=== PATIENT | female | born 1985 | race Caucasian/White ===

== ENCOUNTER → 2019-05-05 | Outpatient (CLI) | payer OTHER ==
--- NOTE | 2019-05-05 15:08 | REP ---
CHEST, TWO VIEWS: There is no evidence of acute infiltrate. No pleural effusion is seen. The heart is normal in size. The mediastinal silhouette is unremarkable. The visualized osseous structures are intact. IMPRESSION: No acute pulmonary disease. Electronically Signed by Brad Simon MD 05/05/2019 03:41 P
[2019-05-05 17:07] LABS: BASO # 0.1 10^3/uL (0.0-0.2); BASO % 0.5 % (0.0-1.0); EOS # 0.2 10^3/uL (0.0-0.5); EOS % 1.8 % (0.0-3.0); HEMATOCRIT 37.4 % (36.0-47.0); HEMOGLOBIN 12.1 g/dl (12.0-15.5); LYMPH # 3.1 10^3/uL (1.5-5.0); LYMPH % 30.8 % (24.0-44.0); MEAN CORPUSCULAR HEMOGLOBIN 31.4 pg (27.0-33.0); MEAN CORPUSCULAR HGB CONC 32.4 g/dl (32.0-36.5); MEAN CORPUSCULAR VOLUME 97.1 fl (80.0-96.0); MONO # 0.9 10^3/uL (0.0-0.8); MONO % 8.5 % (0.0-5.0); NEUTROPHILS # 5.8 10^3/uL (1.5-8.5); NEUTROPHILS % 57.9 % (36.0-66.0); PLATELET COUNT, AUTOMATED 268 10^3/uL (150-450); RED BLOOD COUNT 3.85 10^6/uL (4.00-5.40)
[2019-05-05 17:15] LABS: ALBUMIN 3.9 GM/DL (3.2-5.2); ALT/SGPT 30 U/L (12-78); BILIRUBIN,TOTAL 0.2 MG/DL (0.2-1.0); BLOOD UREA NITROGEN 10 MG/DL (7-18); CALCIUM LEVEL 8.5 MG/DL (8.5-10.1); CARBON DIOXIDE LEVEL 24 MEQ/L (21-32); CHLORIDE LEVEL 109 MEQ/L (98-107); CREATININE FOR GFR 0.71 MG/DL (0.55-1.30); FREE T4 0.96 NG/DL (0.76-1.46); GLOMERULAR FILTRATION RATE > 60.0 (>60); GLUCOSE, FASTING 96 MG/DL (70-100); POTASSIUM SERUM 3.9 MEQ/L (3.5-5.1); SODIUM LEVEL 140 MEQ/L (136-145); TOTAL PROTEIN 6.7 GM/DL (6.4-8.2)
== END ==
LOC: M WUC 13:33
PROVIDERS: ATTEND Physician Assistant
DX: R60.9 Edema, unspecified (principal)

== ENCOUNTER → 2020-01-05 | Outpatient (CLI) | payer OTHER ==
--- NOTE | 2020-01-13 13:30 | REP ---
OB ULTRASOUND HISTORY: Evaluate anatomy. TECHNIQUE: Real-time sonographic evaluation of the gravid uterus is performed. FINDINGS: There is a single living intrauterine gestation. The estimated gestational age is reportedly 3 weeks 5 days, estimated date of confinement (EDC) 03/10/2020. Todays measurements indicate appropriate growth. BIOMETRY CHART: BPD 78 mm 31 weeks 3 days 60th percentile HC 294 mm 32 weeks 3 days 75th percentile AC 267 mm 30 weeks 5 days 51st percentile Femur length 63 mm 32 weeks 3 days 75th percentile AC/HC ratio 1.10 Normal 0.97 to 1.16 Estimated weight 1775 g 65th percentile position is cephalic. Placenta is anterior and grade 2 with no previa or abruption. heart rate 134 beats per minute. Amniotic fluid appears within normal limits. Amniotic fluid index (ZAK) 12.8, normal range 8.9 to 23.7. Visualized anatomy today includes cerebellum, cisterna magna, facial structures, four chamber heart, ventricular outflow tracts, stomach, cord insertion, three-vessel cord kidneys and bladder which were all grossly unremarkable; although, there is an echogenic focus in the left ventricle of the heart likely related to chordae tendineae. The lateral ventricles and the cranium, choroid plexus, and spine are note well visualized. Cervix is closed and measures 3.1 cm in length. MTDD
== END ==
LOC: M WHC 15:15
PROVIDERS: ATTEND Advanced Practice Midwife
DX: O09.513 Supervision of elderly primigravida, third trimester (principal)

== ENCOUNTER → 2020-01-11 | Outpatient (CLI) | payer OTHER ==
[2020-01-11 17:47] LABS: BASO # 0.2 10^3/uL (0.0-0.2); BASO % 0.7 % (0.0-1.0); EOS # 0.2 10^3/uL (0.0-0.5); EOS % 1.1 % (0.0-3.0); HEMATOCRIT 36.3 % (36.0-47.0); HEMOGLOBIN 12.1 g/dl (12.0-15.5); LYMPH # 2.9 10^3/uL (1.5-5.0); MEAN CORPUSCULAR HEMOGLOBIN 31.6 pg (27.0-33.0); MEAN CORPUSCULAR HGB CONC 33.3 g/dl (32.0-36.5); MEAN CORPUSCULAR VOLUME 94.8 fl (80.0-96.0); MONO # 1.6 10^3/uL (0.0-0.8); MONO % 7.5 % (0.0-5.0); NEUTROPHILS # 15.1 10^3/uL (1.5-8.5); NEUTROPHILS % 71.7 % (36.0-66.0); PLATELET COUNT, AUTOMATED 467 10^3/uL (150-450); RED BLOOD COUNT 3.83 10^6/uL (4.00-5.40)
[2020-01-11 18:05] LABS: GLUCOSE CHALLENGE TEST 1 HOUR 74 MG/DL (LESS THAN 140)
[2020-01-11 19:04] LABS: HEPATITIS C VIRUS ABY INDEX 0.1 INDEX (<0.8); HIV 1&2 SCREEN CENTAUR NEGATIVE (NEGATIVE)
== END ==
LOC: M PLALAB 13:12
PROVIDERS: ATTEND Advanced Practice Midwife
DX: O09.513 Supervision of elderly primigravida, third trimester (principal); Z3A.00 Weeks of gestation of pregnancy not specified

== ENCOUNTER → 2020-02-16 | Outpatient (REF) | payer OTHER ==
[~2020-02-16] MED LIST: PRENTAB9 PO
== END ==
LOC: M SFHCWAGY 16:54
PROVIDERS: ATTEND Obstetrics & Gynecology
DX: Z3A.36 36 weeks gestation of pregnancy (principal)

== ENCOUNTER 2020-02-20 20:44 | Inpatient (IN) | payer OTHER ==
[~2020-02-20] VITALS: Ht 172.7 cm; Wt 105.0 kg
[2020-02-20 20:58] VITALS: BP 132/83
[2020-02-20 21:08] VITALS: BP 132/83
[2020-02-20] MEDS ORDERED: PRENTAB9 PO (21:51)
[2020-02-20 22:18] LABS: HEMATOCRIT 37.9 % (36.0-47.0); HEMOGLOBIN 12.6 g/dl (12.0-15.5); MEAN CORPUSCULAR HEMOGLOBIN 31.2 pg (27.0-33.0); MEAN CORPUSCULAR HGB CONC 33.2 g/dl (32.0-36.5); MEAN CORPUSCULAR VOLUME 93.8 fl (80.0-96.0); PLATELET COUNT, AUTOMATED 360 10^3/uL (150-450); RED BLOOD COUNT 4.04 10^6/uL (4.00-5.40); WHITE BLOOD COUNT 22.3 10^3/uL (4.0-10.0)
[2020-02-21] VITALS (14 sets, daily range): BP systolic 98–148; BP diastolic 59–79
[2020-02-21] MEDS ORDERED: FENTANYL 2MCG/ML ROPIVACAINE 0.2% IN 0.9% NACL 100ML IVBAG As Ordered ONE (00:55)
[2020-02-21] MEDS ORDERED: LACTATED RINGER'S 1000 ML IV STA (00:57)
--- NOTE | 2020-02-21 01:14 | HPEPDOC ---
Obstetrical History & Physical General Date of Admission Feb 20, 2020 at 21:32 History of Present Illness 34yo at 37+3 weeks. Presented with large loss of clear fluid, followed by the onset of painful, frequent uterine contractions. No heavy VB. Reports +FM. No SALAS, sob, cp, f/c/n/v. PMH: none SH: Left leg? No abdominal surgeries Meds: PNV All: NKDA HVAC MANAGER: no dysplasia or STI OB: EAB x 2 (2004,2010) Sochx: +smoker/tobacco use during . No EtOH or recreational drug use. Chief Complaint: Contractions, term, LOF, term Care Care: Limited Care (3rd trimester entry to care) Dating Final EDC: Mar 10, 2020 Final EDC by: LMP, 3rd trimester (US) Antepartum Course Diagnos(e)s 1. Advanced maternal age 2. Tobacco use during Past Medical History Allergies Coded Allergies: No Known Drug Allergies (Verified Allergy, Unknown, 02/20/20) Medications Scheduled No.137/Iron/Folic Acd ( Vitamin Tablet) 1 Each Tablet, 1 TAB PO DAILY Physical Examination Physical Examination GENERAL: Alert and oriented times three. BREAST: . ABDOMEN: Gravid and non-tender to touch. FETUS: Is vertex (VTX) by sterile vaginal examination (SVE), fetus is vertex (VTX) by Luisito. HEART RATE: Regular rate and rhythm. LUNGS: Clear to auscultation (CTA). EXTREMITIES: No edema. No clonus. Deep tendon reflexes (DTRs) + . Vital Signs/I&O Vital Signs Date Time Temp Pulse Resp B/P (MAP) Pulse Ox O2 Delivery O2 Flow Rate FiO2 02/20/20 20:58 96.9 80 18 132/83 (99) Room Air Laboratory Data 24H LABS Laboratory Tests 2 02/20/20 21:43: Serology Scanned Report Hepatitis B Testing 02/20/20 22:00: Nucleated Red Blood Cells % (auto) 0.0, Syphilis Serology NONREACTIVE CBC/BMP Laboratory Tests 02/20/20 22:00 Pertinent Laboratoy Data Blood Type: A+ RBC Antibody Screen: Negative HIV: Negative Hepatitis B: Negative Hepatitis C: Negative Rapid Plasma Reagin: Immune Rubella: Immune Varicella: Immune Chlamydia/Gonorrhea: Negative Group B Streptococcus: Negative Cystic Fibrosis: Negative Glucose Tolerance Test: 74 Anatomy Ultrasound Ultrasound Date: Jan 05, 2020 Placenta Location: Anterior Normal Anatomy: Yes Placenta Previa: No Vaginal Examination Dilation: 6 cm Effacement: 100% Station: 0 Cervical Consistency: Soft Cervical Position: Anterior Presentation: Cephalic presentation (Grossly ruptured) Assessment Heart Rate (FHR): 115 Variability: Moderate Accelerations: Positive Decelerations: None Tocometer Contractions: Yes Frequency: every 2-5 min. Strength: palpated as strong Assessment/Plan Assessment 34-year old at 37+3 weeks gestation. Dx:. Spontaneous active labor with spontaneous rupture membranes. Reassuring maternal and status. Plan Admit and orient. Routine labs/orders Augment labor with Pitocin as needed Mode of delivery plan: ; as indicated. KAREN WOODS DO Feb 21, 2020 01:14
[2020-02-21] MEDS ORDERED: REFRIGERATOR IV KEYS XX PRN (02:00)
[2020-02-21] MEDS ORDERED: FENTANYL/ROPIVACAINE/NACL BAG 100 ML EPIDURAL SCH (02:00)
[2020-02-21] MEDS ORDERED: EPIDURAL COMMENT XX SCH (02:00)
[2020-02-21] MEDS ORDERED: NALOXONE INJ 0.4MG/1ML VIAL (J2310 PER 1MG) IV PRN (02:00)
[2020-02-21] MEDS ORDERED: LACTATED RINGER'S 1000 ML IV PRN (02:00)
[2020-02-21] MEDS ORDERED: diphenhydrAMINE 50MG/ML VIAL (J1200) IV PRN (02:00)
[2020-02-21] MEDS ORDERED: ePHEDrine SULFATE 25 MG/5 ML(5MG/ML) SYRINGE IV PRN (02:00)
[2020-02-21] MEDS ORDERED: ONDANSETRON 4MG/2ML VIAL IV PRN ×2 (02:00→03:45)
[2020-02-21] MEDS ORDERED: EPIDURAL/PCA KEYS XX PRN (02:00)
--- NOTE | 2020-02-21 03:13 | IPNPDOC ---
Obstetrical Progress Note Date of Service Feb 21, 2020 Subjective Patient comfortable with epidural, although she is feeling rectovaginal pressure. Objective Vital Signs Date Time Temp Pulse Resp B/P (MAP) Pulse Ox O2 Delivery O2 Flow Rate FiO2 02/21/20 01:59 88 117/68 (84) 02/21/20 01:08 97.0 02/20/20 20:58 18 Room Air Assessment Heart Rate (FHR): 105 Variability: Moderate Accelerations: Positive Decelerations: None Heart Patterns: Bradycardia Heart Rate Tracing: Category II Tocometer Contractions: Yes Frequency: every 2-5 min. Sterile Vaginal Examination Dilation: complete Effacement (%): 100% Station: +2 Cervical Position: Anterior Postion/Presentation: Cephalic presentation Assessment and Plan Anticipate: Vaginal Delivery Additional Comments Start maternal pushing efforts. Acceptable to continue with this Cat II FHR given the moderate variability, accelerations and labor progression. KAREN WOODS DO Feb 21, 2020 03:13
[2020-02-21] MEDS ORDERED: OXYTOCIN 30 UNITS IN 0.9% NaCl 500ML IV BAG (J2590) As Ordered ONE (03:26)
[2020-02-21] MEDS: LR 1,000 ML IV SCH ×2 (03:33→11:33)
[2020-02-21] MEDS ORDERED: OXYTOCIN DRIP 30 UNITS in IV 1 EA IV SCH (03:33)
--- NOTE | 2020-02-21 03:39 | DNPDOC ---
[facility] Delivery Note Delivery Note DATE OF DELIVERY: 02/21/2020 TIME OF DELIVERY: 0324 Spontaneous vaginal delivery. WELT MAKER: Dr. Hussain Everett DO FACOG ANESTHESIA: Epidural. LACERATION: None ESTIMATED BLOOD LOSS:. 200 mL. FINDINGS: 6 pound 9 ounce (2990 g) male , Score, 9 and 9. DELIVERY SUMMARY: The active phase and second stage of labor progressed in normal fashion.. She received Pitocin augmentation throughout her labor course. The head delivered in the YOVANI position, and restituted LOT. No nuchal cord was noted. The anterior shoulder delivered with gentle downward guidance and the remainder of the body delivered with ease. The baby was placed on the patient's chest. Delayed cord clamping occurred for approximately 1 minute. The cord was then doubly clamped and cut. IV Pitocin was bolused to actively manage the third stage of labor. The placenta delivered intact without any difficulty within 10 minutes of delivery. The uterine fundus was noted to be firm and 2 cm below the umbilicus. The cervix, vagina, vulva and perineum were inspected.. No laceration was noted. Excellent hemostasis was noted. Sponge, needle and instrument counts were correct per protocol. DO VERONIKA Givens JONATHAN R. DO Feb 21, 2020 03:39
[2020-02-21] MEDS ORDERED: MEASLES,MUMPS,RUBELLA VACCINE INJ (MMR-II) (90707) SC SCH (03:45)
[2020-02-21] MEDS ORDERED: PROMETHAZINE 25 MG TAB PO PRN (03:45)
[2020-02-21] MEDS ORDERED: IBUPROFEN 800 MG TAB PO PRN (03:45)
[2020-02-21] MEDS ORDERED: DOCUSATE SODIUM 100 MG CAP PO PRN (03:45)
[2020-02-21] MEDS ORDERED: IBUPROFEN 600MG TAB PO PRN (03:45)
[2020-02-21] MEDS ORDERED: ACETAMINOPHEN TAB 650MG DOSE (2X325MG) PO PRN (03:45)
[2020-02-21] MEDS ORDERED: RHOGAM 300 MCG (1500 IU) INJ (J2790) IM SCH (03:45)
[2020-02-21] MEDS ORDERED: ACETAMINOPHEN 500 MG TAB PO PRN (03:45)
[2020-02-21] MEDS ORDERED: DIBUCAINE 1% OINTMENT 30GM TOP PRN (03:45)
[2020-02-21] MEDS ORDERED: METHYLERGONOVINE MALEATE 0.2 MG TAB PO PRN (03:45)
[2020-02-21] MEDS: PRENATAL VITAMINS CHEWABLE TABLET PO SCH (09:00)
[2020-02-22 06:00] VITALS: BP 142/90
[2020-02-22] MEDS: PRENATAL VITAMINS CHEWABLE TABLET PO SCH (09:44)
[2020-02-22 14:23] LABS: HEMATOCRIT 38.7 % (36.0-47.0); HEMOGLOBIN 12.7 g/dl (12.0-15.5); MEAN CORPUSCULAR HEMOGLOBIN 31.6 pg (27.0-33.0); MEAN CORPUSCULAR HGB CONC 32.8 g/dl (32.0-36.5); MEAN CORPUSCULAR VOLUME 96.3 fl (80.0-96.0); PLATELET COUNT, AUTOMATED 385 10^3/uL (150-450); RED BLOOD COUNT 4.02 10^6/uL (4.00-5.40); WHITE BLOOD COUNT 18.5 10^3/uL (4.0-10.0)
[2020-02-22 14:48] LABS: ALBUMIN 2.7 GM/DL (3.2-5.2); ALT/SGPT 26 U/L (12-78); BILIRUBIN,TOTAL 0.2 MG/DL (0.2-1.0); BLOOD UREA NITROGEN 8 MG/DL (7-18); CALCIUM LEVEL 9.1 MG/DL (8.5-10.1); CARBON DIOXIDE LEVEL 24 MEQ/L (21-32); CHLORIDE LEVEL 108 MEQ/L (98-107); CREATININE FOR GFR 0.61 MG/DL (0.55-1.30); GLOMERULAR FILTRATION RATE > 60.0 (>60); GLUCOSE, FASTING 94 MG/DL (70-100); POTASSIUM SERUM 4.3 MEQ/L (3.5-5.1); SODIUM LEVEL 138 MEQ/L (136-145); TOTAL PROTEIN 6.2 GM/DL (6.4-8.2)
[2020-02-22] MEDS ORDERED: DOCU100C16 PO (18:11)
[2020-02-22] MEDS ORDERED: IBUP80TA PO (18:11)
--- NOTE | 2020-02-22 18:16 | IPNPDOC ---
Progress Note Date of Service: Feb 22, 2020 Day#: 1 Progress Note PPD 1 SUBJECT: Ben is a 34yo [id number] s/p uncomplicated after presenting in active labor with SROM, delivering at 0324 on 04/22, doing well day # 1. She has been ambulating, voiding spontaneously without issue and tolerating regular diet. Bottle feeding without issue. Reports lochia is like a normal p eriod. No fevers/chills/nausea/vomiting/SOB/CP/SALAS/vision changes. OBJECTIVE: VITAL SIGNS: bp's normotensive to mild range, afebrile. Alert and oriented times three. Abdomen: Fundus firm at U-2. Soft, NTTP. Extremities: no pain with palpation of calves Labs: 02/21 H/H 12.7/38.7 plt 385, creat 0.61, AST 28/ALT 26 ASSESSMENT: Ben is a 34yo [id number] s/p uncomplicated after presenting in active labor with SROM, delivering at 0324 on 04/22, doing well day # 1. Bp's normotensive to mild range but no s/sx of pre-E (CMP/CBC recently drawn have normal plt/creat/LFTs), afebrile, hemodynamically stable with no evidence of infection. PLAN: 1. Discharge to home today with plan for bp check on Wednesday in the office which we discussed 2. Tylenol and Motrin for pain. 3. Encourage ambulation. 4. Undecided on contraception, briefly discussed and will re-address at pp visit 5. Discussed return precautions at length. Britni Fowler MD VS, I&O, 24H, [facility] Vital Signs/I&O Vital Signs Date Time Temp Pulse Resp B/P (MAP) Pulse Ox O2 Delivery O2 Flow Rate FiO2 02/22/20 06:00 97.9 88 18 142/90 (107) 98 Room Air Laboratory Data 24H LABS Laboratory Tests 2 02/22/20 14:01: Nucleated Red Blood Cells % (auto) 0.0, Anion Gap 6L, Glomerular Filtration Rate > 60.0, Calcium Level 9.1, Total Bilirubin 0.2, Aspartate Amino Transf (AST/SGOT) 28, Alanine Aminotransferase (ALT/SGPT) 26, Alkaline Phosphatase 118H, Total Protein 6.2L, Albumin 2.7L, Albumin/Globulin Ratio 0.8L CBC/BMP Laboratory Tests 02/22/20 14:01 Britni Fowler MD Feb 22, 2020 18:16
--- NOTE | 2020-02-22 18:19 | DS.PDOC ---
Discharge Summary General Date of Admission Feb 20, 2020 at 21:32 Date of Discharge 02/22/2020 Discharge Summary PROCEDURES PERFORMED DURING STAY: spontaneous vaginal delivery ADMITTING DIAGNOSES: 1. Active labor and SROM at term DISCHARGE DIAGNOSES: 1. Active labor and SROM at term, delivered COMPLICATIONS/CHIEF COMPLAINT: ?ROM. HISTORY OF PRESENT ILLNESS/HOSPITAL COURSE: Ben is a 34yo [id number] s/p uncomplicated after presenting in active labor with SROM, delivering at 0324 on 04/22, doing well day # 1. She has had a benign course and is desirous of discharge home. Bp's normotensive to mild range but no s/sx of pre-E (CMP/CBC recently drawn have normal plt/creat/LFTs), afebrile, hemodynamically stable with no evidence of infection. DISCHARGE MEDICATIONS: Please see below. ALLERGIES: Please see below. PHYSICAL EXAMINATION ON DISCHARGE: VITAL SIGNS: bp's normotensive to mild range, afebrile. Alert and oriented times three. Abdomen: Fundus firm at U-2. Soft, NTTP. Extremities: no pain with palpation of calves LABORATORY DATA: Please see below. 02/21 H/H 12.7/38.7 plt 385, creat 0.61, AST 28/ALT 26 ACTIVITY: vaginal rest 6 weeks, no heavy lifting DIET: regular DISPOSITION: home DISCHARGE PLAN/INSTRUCTIONS: 1. Discharge to home today with plan for bp check on Wednesday in the office which we discussed 2. Tylenol and Motrin for pain. 3. Encourage ambulation. 4. Undecided on contraception, briefly discussed and will re-address at pp visit 5. Discussed return precautions at length. DISCHARGE CONDITION: Stable TIME SPENT ON DISCHARGE: Greater than 20 minutes. Britni Fowler MD Vital Signs/I&Os Vital Signs Date Time Temp Pulse Resp B/P (MAP) Pulse Ox O2 Delivery O2 Flow Rate FiO2 02/22/20 06:00 97.9 88 18 142/90 (107) 98 Room Air Laboratory Data Labs 24H Laboratory Tests 2 02/22/20 14:01: Nucleated Red Blood Cells % (auto) 0.0, Anion Gap 6L, Glomerular Filtration Rate > 60.0, Calcium Level 9.1, Total Bilirubin 0.2, Aspartate Amino Transf (AST/SGOT) 28, Alanine Aminotransferase (ALT/SGPT) 26, Alkaline Phosphatase 118H, Total Protein 6.2L, Albumin 2.7L, Albumin/Globulin Ratio 0.8L CBC/BMP Laboratory Tests 02/22/20 14:01 Discharge Medications Scheduled No.137/Iron/Folic Acd ( Vitamin Tablet) 1 Each Tablet, 1 TAB PO DAILY, (Reported) Scheduled PRN Docusate Sodium (Docusate Sodium) 100 Mg Capsule, 100 MG PO QHSP PRN for CONSTIPATION Ibuprofen (Ibuprofen) 800 Mg Tablet, 800 MG PO Q8HP PRN for PAIN LEVEL 6-10 Allergies Coded Allergies: No Known Drug Allergies (Verified Allergy, Unknown, 02/20/20) Britni Fowler MD Feb 22, 2020 18:19
== END 2020-02-22 18:35 | disposition home or self-care (01) | DRG 560 ==
LOC: M LDO 20:44 → M LDI 21:32 → M OBS 02-21 06:06
PROVIDERS: ADMIT Obstetrics & Gynecology; ATTEND Obstetrics & Gynecology
PROC: 10E0XZZ Delivery of Products of Conception, External Approach (ICD-10-PCS; principal; 2020-02-21)
DX: O99.334 Smoking (tobacco) complicating childbirth (principal); F17.210 Nicotine dependence, cigarettes, uncomplicated; Z3A.37 37 weeks gestation of pregnancy; Z37.0 Single live birth